=== PATIENT | male | born 1995 | race Two or more races ===

== ENCOUNTER 2022-02-25 15:00 | Emergency (ER) | payer SELFPAY ==
[~2022-02-25] VITALS: Ht 172.7 cm; Wt 73.0 kg
[2022-02-25] MEDS ORDERED: KETOROLAC 60MG/2ML VIAL IM STA (15:33)
[2022-02-25] MEDS ORDERED: DICYCLOMINE 10 MG/5 ML ORAL SYR PO STA (15:33)
[2022-02-25] MEDS ORDERED: MAGNESIUM/ALUMINUM HYDROXIDE/SIMETHICONE 30ML UDC PO STA (15:33)
[2022-02-25] MEDS ORDERED: DICY10CA88 MT (17:14)
[2022-02-25 17:44] VITALS: BP 134/80
== END 2022-02-25 17:55 | disposition home or self-care (01) ==
LOC: ER 15:00
DX: R10.13 Epigastric pain (principal)
CPT/HCPCS: 99283

== ENCOUNTER 2022-02-25 17:49 | Emergency (ER) | payer MEDICAID ==
[~2022-02-25] VITALS: Ht 165.1 cm; Wt 75.0 kg
[~2022-02-25 17:49] MED LIST: DICY10CA88 MT
[2022-02-25] MEDS ORDERED: LORAZEPAM 1MG TABLET PO ONE (20:30)
[2022-02-25 22:20] LABS: BASOPHILS % 0.5 % (0.0-2.0); EOSINOPHILS % 0.3 % (0.0-5.0); HEMATOCRIT. 45.1 % (42.0-52.0); HEMOGLOBIN. 15.5 g/dL (14.0-18.0); MEAN CORPUSCULAR HEMOGLOBIN 29.9 pg (28.0-32.0); MEAN CORPUSCULAR VOLUME 87.3 fL (80.0-94.0); MEAN PLATELET VOLUME 8.3 fl (7.4-10.4); NEUTROPHILS % 25.2 % (40.0-76.0); PLATELET 288 x1000/uL (130-400); RED BLOOD CELL COUNT 5.17 mill/uL (4.7-6.1); RED CELL DISTRIBUTION WIDTH 14.5 % (11.6-14.6)
[2022-02-25] MEDS ORDERED: QUETIAPINE FUMARATE 50MG TABLET PO STA (22:29)
[2022-02-25 22:30] LABS: CHLORIDE 101 mEq/L (98-107)
[2022-02-25 22:38] LABS: ETHANOL BLOOD < 10 mg/dL
[2022-02-26] MEDS: ARIPIPRAZOLE 5MG TABLET PO SCH ×2 (12:30→20:57)
[2022-02-26] MEDS: FLUOXETINE HCL 10 MG CAPSULE PO SCH (12:30)
[2022-02-26 14:34] LABS: CLARITY URINE CLEAR (CLEAR); COLOR URINE DARK YELLOW (YELLOW); KETONES URINE TRACE (NEGATIVE); LEUKOCYTE ESTERASE URINE NEGATIVE (NEGATIVE); NITRITE URINE NEGATIVE (NEGATIVE); OCCULT BLOOD URINE NEGATIVE (NEGATIVE); PH URINE 5.5 (4.5-8.0); PROTEIN URINE 1+ (NEGATIVE); SPECIFIC GRAVITY URINE 1.026 (1.005-1.030)
[2022-02-26 14:52] LABS: HEMATOCRIT. 44.4 % (42.0-52.0); HEMOGLOBIN. 14.9 g/dL (14.0-18.0); MEAN CORPUSCULAR HEMOGLOBIN 29.7 pg (28.0-32.0); MEAN CORPUSCULAR VOLUME 88.7 fL (80.0-94.0); MEAN PLATELET VOLUME 8.3 fl (7.4-10.4); PLATELET 267 x1000/uL (130-400); RED CELL DISTRIBUTION WIDTH 14.8 % (11.6-14.6)
[2022-02-26] MEDS ORDERED: ACETAMINOPHEN 325MG TABLET PO ONE (15:00)
[2022-02-26] MEDS ORDERED: FAMOTIDINE 20MG TABLET PO ONE (15:00)
[2022-02-26 15:04] LABS: CHLORIDE 102 mEq/L (98-107)
[2022-02-26 15:07] LABS: *AMPHETAMINES SCREEN URINE PRESUMTIVE POSITIVE (NEGATIVE); *BARBITURATES SCREEN URINE NEGATIVE (NEGATIVE); *BENZODIAZEPINES SCREEN URINE NEGATIVE (NEGATIVE); *COCAINE SCREEN URINE NEGATIVE (NEGATIVE); CANNABINOID URINE SCREEN PRESUMTIVE POSITIVE (NEGATIVE); METHADONE URINE SCREEN NEGATIVE (NEGATIVE); OPIATES URINE SCREEN NEGATIVE (NEGATIVE); PHENCYCLIDINE URINE SCREEN NEGATIVE (NEGATIVE)
[2022-02-26 19:08] LABS: PLATELET ESTIMATE NORMAL
[2022-02-26] MEDS ORDERED: LORAZEPAM 0.5MG TABLET PO ONE (23:15)
[2022-02-27] MEDS: FLUOXETINE HCL 10 MG CAPSULE PO SCH (08:35)
[2022-02-27] MEDS: ARIPIPRAZOLE 5MG TABLET PO SCH (08:35)
[2022-02-27 12:00] VITALS: BP 125/58
== END 2022-02-27 12:19 ==
LOC: ER 17:49
DX: F20.0 Paranoid schizophrenia (principal); R45.851 Suicidal ideations; Z20.822 Contact with and (suspected) exposure to COVID-19; R46.2 Strange and inexplicable behavior; F15.90 Other stimulant use, unspecified, uncomplicated; F16.90 Hallucinogen use, unspecified, uncomplicated; F12.90 Cannabis use, unspecified, uncomplicated; Z71.51 Drug abuse counseling and surveillance of drug abuser; Z63.8 Other specified problems related to primary support group; Z75.1 Person awaiting admission to adequate facility elsewhere
CPT/HCPCS: 36415; 80053; 80305; 80307; 80320; 80329; 81001; 85025; 87426; 99285; C9803; U0003; U0005; Z7610; G0480

== ENCOUNTER 2022-03-12 23:59 | Emergency (ER) | payer MEDICAID ==
[~2022-03-12] VITALS: Ht 167.6 cm; Wt 76.7 kg
[2022-03-13 01:25] LABS: BASOPHILS % 0.6 % (0.0-2.0); EOSINOPHILS % 0.2 % (0.0-5.0); HEMOGLOBIN. 15.9 g/dL (14.0-18.0); LYMPHOCYTES % 66.1 % (20.0-50.0); MEAN CORPUSCULAR HEMOGLOBIN 29.2 pg (28.0-32.0); MEAN CORPUSCULAR VOLUME 88.1 fL (80.0-94.0); MEAN PLATELET VOLUME 8.5 fl (7.4-10.4); MONOCYTES % 8.2 % (2.0-8.0); NEUTROPHILS % 24.9 % (40.0-76.0); PLATELET 327 x1000/uL (130-400); RED BLOOD CELL COUNT 5.45 mill/uL (4.7-6.1); RED CELL DISTRIBUTION WIDTH 14.4 % (11.6-14.6)
[2022-03-13 01:27] LABS: CHLORIDE 101 mEq/L (98-107)
[2022-03-13 01:30] VITALS: BP 142/97
[2022-03-13] MEDS ORDERED: ZIPRASIDONE MESYLATE 20MG/VIAL IM ONE (01:30)
[2022-03-13 01:35] LABS: ETHANOL BLOOD 36 mg/dL
[2022-03-13 03:02] LABS: CLARITY URINE CLEAR (CLEAR); COLOR URINE YELLOW (YELLOW); KETONES URINE NEGATIVE (NEGATIVE); LEUKOCYTE ESTERASE URINE NEGATIVE (NEGATIVE); NITRITE URINE NEGATIVE (NEGATIVE); OCCULT BLOOD URINE NEGATIVE (NEGATIVE); PH URINE 5.5 (4.5-8.0); PROTEIN URINE NEGATIVE (NEGATIVE); SPECIFIC GRAVITY URINE 1.006 (1.005-1.030); UROBILINOGEN URINE 0.2 E.U./dL (0.2-1.0)
[2022-03-13 03:40] LABS: *AMPHETAMINES SCREEN URINE PRESUMTIVE POSITIVE (NEGATIVE); *BARBITURATES SCREEN URINE NEGATIVE (NEGATIVE); *BENZODIAZEPINES SCREEN URINE NEGATIVE (NEGATIVE); *COCAINE SCREEN URINE PRESUMTIVE POSITIVE (NEGATIVE); CANNABINOID URINE SCREEN PRESUMTIVE POSITIVE (NEGATIVE); METHADONE URINE SCREEN NEGATIVE (NEGATIVE); OPIATES URINE SCREEN NEGATIVE (NEGATIVE); PHENCYCLIDINE URINE SCREEN NEGATIVE (NEGATIVE)
== END 2022-03-13 09:28 | disposition home or self-care (01) ==
LOC: ER 23:59
DX: F19.129 Other psychoactive substance abuse with intoxication, unspecified (principal); F14.188 Cocaine abuse with other cocaine-induced disorder; R45.851 Suicidal ideations; R45.850 Homicidal ideations; F16.188 Hallucinogen abuse with other hallucinogen-induced disorder; F12.188 Cannabis abuse with other cannabis-induced disorder; F10.10 Alcohol abuse, uncomplicated; Y90.1 Blood alcohol level of 20-39 mg/100 ml; R10.9 Unspecified abdominal pain; Z71.51 Drug abuse counseling and surveillance of drug abuser
CPT/HCPCS: 36415; 80053; 80305; 80307; 80320; 80329; 81003; 85025; 96372; 99283; J3486; Z7610; G0480